=== PATIENT | male | born 1995 | race Caucasian/White ===

== ENCOUNTER 2016-08-12 11:29 | Outpatient (CLI) ==
[2015-09-11 21:14] VITALS: BMI 24.0
--- NOTE | 2016-08-12 12:04 | DI ---
Exam: Four views right knee. linical indication: Right knee pain post fall. Findings: There is no right knee effusion. There are no fractures, dislocations or other significant bony abnormalities. Impression: Negative radiographs of the right knee.
== END 2016-08-12 11:30 | disposition home or self-care (01) ==
LOC: RAD 11:29
PROVIDERS: ATTEND Family Medicine
DX: M25.561 Pain in right knee (principal); W19.XXXA Unspecified fall, initial encounter

== ENCOUNTER 2017-08-18 11:31 | Outpatient (CLI) ==
[2015-09-11 21:14] VITALS: BMI 24.0
== END 2017-08-18 11:32 | disposition home or self-care (01) ==
LOC: LAB 11:31
PROVIDERS: ATTEND Emergency Medicine
DX: I10 Essential (primary) hypertension (principal)
CPT/HCPCS: 36415; 80053; 85025

== ENCOUNTER 2017-08-27 15:25 | Outpatient (CLI) ==
[2015-09-11 21:14] VITALS: BMI 24.0
== END 2017-08-27 15:26 | disposition home or self-care (01) ==
LOC: LAB 15:25
PROVIDERS: ATTEND Nurse Practitioner Family
DX: R21 Rash and other nonspecific skin eruption (principal)
CPT/HCPCS: 36415; 80053; 80074; 81001; 86592; 86631; 86695; 86696; 86701; 87800

== ENCOUNTER 2017-10-04 10:54 | Outpatient (CLI) ==
[2015-09-11 21:14] VITALS: BMI 24.0
--- NOTE | 2017-10-04 11:59 | DI ---
EXAM: Two views of the chest. History: Bronchitis. Comparison: Chest radiograph 03/18/2016 Findings: Heart size is within normal limits. No focal consolidation. No appreciable pleural fluid and no pneumothorax. No acute osseous abnormalities. Impression: No acute cardiopulmonary process.
== END 2017-10-04 10:55 | disposition home or self-care (01) ==
LOC: RAD 10:54
PROVIDERS: ATTEND Emergency Medicine
DX: J40 Bronchitis, not specified as acute or chronic (principal)